=== PATIENT | male | born 1995 | race African-American/Black ===

== ENCOUNTER 2018-11-23 12:24 | Emergency (ER) | payer BC, OTHER ==
[~2018-11-23] VITALS: Ht 185.4 cm; Wt 88.5 kg
[2018-11-23 12:30] VITALS: BP 130/82
[2018-11-23] MEDS ORDERED: AZITHROMYCIN 250 MG TABLET. PO ONE (13:00)
[2018-11-23 13:32] LABS: BILIRUBIN,URINE NEGATIVE (NEG); CLARITY,URINE TURBID; COLOR,URINE YELLOW; NITRITE,URINE NEGATIVE (NEG); PH,URINE 7.5; PROTEIN,URINE NEGATIVE (NEG-TRACE)
[2018-11-23 13:43] LABS: AMORPHOUS SEDIMENT,UR PRESENT /HPF; BACTERIA,URINE 0 /HPF (0-FEW); SQUAMOUS EPITHELIAL CELL,UR OCC /LPF; WBC,URINE 0 /HPF (0-4)
--- NOTE | 2018-11-23 13:54 | PHYS DOC ---
Past Medical History Past Medical History: Other Additional Past Medical Histor: RIGHT ACL TEAR AND REPAIR Past Surgical History: Other Additional Past Surgical Histo: RIGHT ACL REPAIR Alcohol Use: Occasionally Drug Use: Marijuana Adult General Chief Complaint Chief Complaint: SEXUALLY TRANSMITTED DISEASE HPI HPI Patient is a 23 year old AA male who presents to the ER with complaints of painful urination intermittently for the last month that has increased in frequency over the last few days. Pt reports concern of a STI. He denies any testicular pain, testicular swelling, hematuria, irregular penile discharge, or lesions on his penis. Review of Systems Review of Systems Constitutional: Denies fever or chills [] GI: Denies abdominal pain, nausea, vomiting, or diarrhea [] : See HPI Integument: Denies rash or skin lesions [] Neurologic: Denies headache, focal weakness or sensory changes [] Current Medications Current Medications Current Medications Medications (Trade) Dose Ordered Sig/Isaias Start Time Stop Time Status Last Admin Dose Admin Azithromycin (Zithromax) 2,000 mg 1X ONCE 11/23/18 13:00 11/23/18 13:01 DC 11/23/18 13:00 2,000 MG Allergies Allergies Allergies Coded Allergies Type Severity Reaction Last Updated Verified Penicillins Allergy Severe SWELLING, DIFFICULTY BRATHING 11/23/18 Yes Physical Exam Physical Exam Constitutional: Well developed, well nourished, no acute distress, non-toxic appearance. [] HENT: Normocephalic, atraumatic, bilateral external ears normal, nose normal. [] Eyes: conjunctiva normal, no discharge. [] Neck: Normal range of motion, no tenderness, supple, no stridor. [] Cardiovascular:Heart rate regular rhythm, no murmur [] Lungs & Thorax: Bilateral breath sounds clear to auscultation [] Skin: Warm, dry, no erythema, no rash. [] Neurologic: Alert and oriented X 3, normal motor function, normal sensory function, no focal deficits noted. [] Psychologic: Affect normal, judgement normal, mood normal. [] Current Patient Data Vital Signs Vital Signs Date Time Temp Pulse Resp B/P (MAP) Pulse Ox O2 Delivery O2 Flow Rate FiO2 11/23/18 12:30 98.5 61 14 130/82 (98) 100 Room Air 98.5 Lab Values Laboratory Tests Test 11/23/18 12:50 Urine Collection Type Unknown Urine Color Yellow Urine Clarity Turbid Urine pH 7.5 Urine Specific [place] 1.025 Urine Protein Negative mg/dL (NEG-TRACE) Urine Glucose (UA) Negative mg/dL (NEG) Urine Ketones (Stick) Negative mg/dL (NEG) Urine Blood Negative (NEG) Urine Nitrite Negative (NEG) Urine Bilirubin Negative (NEG) Urine Urobilinogen Dipstick 1.0 mg/dL (0.2 mg/dL) Urine Leukocyte Esterase Negative (NEG) Urine RBC 1-2 /HPF (0-2) Urine WBC 0 /HPF (0-4) Urine Squamous Epithelial Cells Occ /LPF Urine Amorphous Sediment Present /HPF Urine Bacteria 0 /HPF (0-FEW) Urine Mucus Slight /LPF EKG EKG [] Radiology/Procedures Radiology/Procedures [] Course & Med Decision Making Course & Med Decision Making Pertinent Labs and Imaging studies reviewed. (See chart for details) Dx: suspected STI, dysuria Patient was treated prophylactically with 2 g of PO Zithromax. Patient was instructed to avoid having intercourse until the results of gonorrhea and chlamydia testing were available, patient was notified that these results would not be available for 48 hours. If one or both of these tests is positive, patient needs to refrain from intercourse for approximately 2 weeks following the treatment of any current partners. Patient verbalized an understanding of home care, medications, follow-up, and return to ED instructions and was in agreement with the plan of care. [] Dragon Disclaimer Dragon Disclaimer This electronic medical record was generated, in whole or in part, using a voice recognition dictation system. Departure Departure Impression: Primary Impression: Contact with and (suspected) exposure to infections with a predominantly sexual mode of transmission Additional Impression: Dysuria Disposition: 01 HOME, SELF-CARE Condition: STABLE Referrals: UNKNOWN PCP NAME (PCP) Patient Instructions: Dysuria-Brief, Sexually Transmitted Disease, [id number] Additional Instructions: You were treated today with antibiotics for a suspected sexually transmitted disease. Avoid having intercourse until the results of gonorrhea and chlamydia testing are available, these results will not be available for 48 hours. If one or both of these tests is positive, you need to refrain from intercourse for approximately 2 weeks following the treatment of any current partners. Follow up with your primary care doctor as needed. Return to the ER if symptoms worsen. Problem Qualifiers DAKOTA NEWMAN APRN Nov 23, 2018 13:54
== END 2018-11-23 14:04 | disposition home or self-care (01) ==
LOC: ER 12:24
DX: R30.0 Dysuria (principal); Z20.2 Contact with and (suspected) exposure to infections with a predominantly sexual mode of transmission; Z88.0 Allergy status to penicillin
CPT/HCPCS: 81001; 87491; 87591; 99283; Q0144